=== PATIENT | female | born 1980 | race Caucasian/White ===

== ENCOUNTER 2019-07-03 08:51 | Emergency (ER) | payer OTHER, SELFPAY ==
[2019-07-03 09:13] VITALS: BP 129/82; PULSE 101; RESP 18; TEMP 36.3; O2SAT 99
--- NOTE | 2019-07-03 09:26 | ED.GENADULT ---
HPI - General Adult General Chief complaint: Skin/Abscess/Foreign Body Stated complaint: Cyst under r/arm/drainage Time Seen by Provider: 07/03/19 09:26 Source: patient and RN notes reviewed Mode of arrival: ambulatory Limitations: no limitations History of Present Illness HPI narrative: 38-year-old female presents with complaints of with draining boil to RT axilla with redness, tenderness, and swelling for the past 2 days. History of Hidradenitis Suppurativa. Tender to touch. History of skin abscess. Denies MRSA history. No fever or chills. No abdominal pain, nausea, and vomiting. Remains active. Devorah denies being , LMP 2 weeks ago. 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 Some parts of this dictation were generated by voice recognition software and may contain typographical and/or grammatical inaccuracies. Related Data Allergies Allergy/AdvReac Type Severity Reaction Status Date / Time sulfamethoxazole Allergy Hives Verified 07/03/19 09:23 [From Bactrim] trimethoprim [From Bactrim] Allergy Hives Verified 07/03/19 09:23 Review of Systems Review of Systems: Narrative: CONSTITUTIONAL: Denies fever, chills, sweats. EYES: Denies visual changes, redness, discharge. ENT: Denies rhinorrhea, congestion, sore throat, otalgia. CARDIOVASCULAR: Denies chest pain, palpitations, edema. RESPIRATORY: Denies dyspnea, wheezing, cough. GASTROINTESTINAL: Denies abdominal pain, nausea, vomiting, diarrhea. GENITOURINARY: Denies dysuria, hematuria, abnormal discharge. SKIN: Denies rash or itching. Right axilla boil with redness, tenderness, swelling, and drainage. MUSCULOSKELETAL: Denies acute back pain, joint pain, or myalgia. NEUROLOGIC: Denies numbness or focal weakness. PSYCHIATRIC: Denies anxiety or depression. All systems reviewed & are unremarkable except as noted in HPI and below. [facility] Past Medical History Medical History (Updated 07/10/19 @ 17:58 by URBANO Lara) Asthma Bronchitis COPD (chronic obstructive pulmonary disease) Hidradenitis suppurativa Substance abuse Surgical History Surgical History (Updated 07/03/19 @ 09:36 by URBANO Lara) History of incision and drainage Family History Family History (Updated 07/03/19 @ 09:38 by URBANO Lara) Father Diabetes mellitus Grandparent Diabetes mellitus Grandparent Lung cancer Social History Social History (Updated 07/03/19 @ 09:41 by URBANO Lara) Smoking packs per day: 1 Smoking cigarettes per day: 20.0 Years smoked: 25 Smoking pack-years: 25.00 Smoking status: Current every day smoker Tobacco type: cigarettes Second hand tobacco smoke exposure: Yes Alcohol intake: former Alcohol use details: Stop drinking 3 years ago Substance use: former Substance use type: amphetamines, IV drugs and methamphetamine Other substance usage details: Patient is currently in a drug rehab Additional living arrangements comments: Currently in a drug rehab Occupation/Education: unemployed Gender identity (if verbalized by the patient): Female Comments At time of signature, I have reviewed and agree with nursing past medical, surgical, social, and family history. Please see nursing chart for further information. There is no relevant family history pertinent to the presenting complaint. Exam Narrative: Exam Narrative: GENERAL: This is a well-nourished, well-developed patient, in no apparent distress. Talking in full sentences without deficit and ambulate with steady gait without dyspnea. HEAD: normocephalic, atraumatic. EYES: PERRL. Sclera clear/white. Vision is grossly intact. NECK: Neck supple, non-tender without lymphadenopathy, masses or thyromegaly. CARDIOVASCULAR: Regular rate and rhythm without murmurs, gallops, or rubs. RESPIRATORY: Clear to auscultation. Breath sounds equal bilaterally. No wheezes, ral
[2019-07-03 09:45] VITALS: PULSE 96
== END 2019-07-03 09:45 | disposition home or self-care (01) ==
PROVIDERS: Emergency Provider Nurse Practitioner Family; PCP Family Medicine
DX: L02.411 Cutaneous abscess of right axilla (principal); F17.210 Nicotine dependence, cigarettes, uncomplicated
CPT/HCPCS: 99203; G0463